=== PATIENT | male | born 1960 | race African-American/Black ===

== ENCOUNTER 2020-04-20 15:24 | Outpatient (CLI) | payer BC ==
--- NOTE | 2020-04-20 16:20 | ULT ---
Scrotal sonogram with duplex evaluation HISTORY: Right scrotal pain and lump. FINDINGS: Right testicle is 4.0 cm length and left is 3.9 cm. Tiny intratesticular cyst on the right. No solid masses. Good color and spectral Doppler flow within each ovary. Right epididymis and tunica are slightly hyperemic. No significant fluid or evidence of hernia. No fo nicolás mass. IMPRESSION : Mild inflammation of the right epididymis and tunica. Clinical correlation regarding other signs and symptoms of right epididymitis is required. Incidental note of tiny right testicular cyst. No solid masses or other aggressive abnormalities.
== END 2020-04-20 15:25 | disposition home or self-care (01) ==
LOC: SCSULT 15:24
PROVIDERS: ATTEND Specialist
DX: K40.90 Unilateral inguinal hernia, without obstruction or gangrene, not specified as recurrent (principal); N45.1 Epididymitis; N44.2 Benign cyst of testis
CPT/HCPCS: 76870; 93976